=== PATIENT | male | born 1965 | race Caucasian/White ===

== ENCOUNTER 2023-03-17 02:08 | Day surgery (SDC) | payer OTHER, SELFPAY ==
[2023-03-13 16:12] VITALS: BMI 33.3
[2023-03-17 12:09] VITALS: BP 169/104; PULSE 91; RESP 18; TEMP 36.6; O2SAT 99; BMI 32.2
[2023-03-17] MEDS: LACTATED RINGERS 1,000 ML 150 ML IV CONT (12:22)
--- NOTE | 2023-03-17 12:36 | WPDANESEPPF ---
Anes - Initial Pre Proc Eval Procedure: Operation Date: 03/17/23 13:00 Proposed Procedures p Colonoscopy - Jasper Hurd MD Date/Time: 03/17/23 12:36 Surgeon: Jasper Hurd MD Pre Op Diagnosis: hx colon polyps, family hx colon ca Patient Data Age: 57 Gender: M Height: 1.75 m Weight: 99.1 kg Last Vital Signs Temp 97.9 F 03/17/23 12:09 Pulse 91 03/17/23 12:09 Resp 18 03/17/23 12:09 BP 169/104 H 03/17/23 12:09 Pulse Ox 99 03/17/23 12:09 O2 Del Method Room Air 03/17/23 12:09 Allergies Allergy/AdvReac Type Severity Reaction Status Date / Time No Known Allergies Allergy Verified 03/17/23 11:59 Home Medications Medication Instructions Recorded Confirmed Type amlodipine 10 mg tablet 10 mg PO DAILY #90 tabs 10/20/22 03/17/23 Rx tramadol 50 mg tablet 50 mg PO Q6H PRN pain #120 tabs 02/27/23 03/17/23 Rx tadalafil 5 mg tablet 5 mg PO DAILY 03/13/23 03/17/23 History Patient hx anesthesia problems: none Family hx anesthesia problems: none Results Review: All pre-operative results and documents have been reviewed as part of the pre-operative evaluation. [facility] Past Medical History Medical History Erectile dysfunction Hypogonadism Low back pain with left-sided sciatica Primary hypertension Family History Family History Father Family history of malignant neoplasm of gastrointestinal tract Other Malignant neoplasm of prostate Social History Social History (Updated 10/21/22 @ 08:49 by Viviane Harmon PA-C) Smoking status: Never smoker Second hand tobacco smoke exposure: No Alcohol intake: current Drinks per week: 3 Substance use: never Substance use type: does not use Lack of Transportation: No Lack of Food: Never True Current Housing: I Have Housing Concerned About Future Housing: No Difficulty Paying Gas/Electric Bills: No Difficulty Paying for Meds: No Currently Unemployed: No Education: Trade/Vocational Certificate Difficulty w/ Childcare or Family Care: No Living arrangements: with family Spiritual care concerns: No Anes - Eval Final PreProcedure Day of Procedure 03/17/23 12:36 Patient weight: obese Heart: regular rate and rhythm Lungs: clear to auscultation Airway: Mallampati scale class II Neurological: alert and oriented Last oral intake: >/= 8 hours ASA classification: II Emergent: no Anesthetic plan: proceed Anesthesia type and monitoring: general GIVS and standard monitoring Results Review: All pre-operative results and documents have been reviewed as part of the pre-operative evaluation. Informed Consent: The patient's anesthetic plan and its attendant risks and benefits were discussed with the patient/family/POA. Questions were solicited and answers provided to the satisfaction of the patient/family/POA.
--- NOTE | 2023-03-17 12:40 | P.HP_ITS ---
History of Present Illness History of Present Illness Consent: Risks, benefits, and alternatives have been discussed and questions answered. Patient agrees to proceed with procedure. Chief complaint: hx colon polyps, family hx colon ca Narrative: Stanford Lozano is a 57 year old male presents for screening colonoscopy. Patient's current weight appetite and bowel movements are normal. Patient denies abdominal pain. He has had no bleeding. Family history is significant for colon cancer. Patient himself was identified as having colon polyps in 2018. Review of Systems Review of Systems: Review of systems noncontributory. [facility] Past Medical History Medical History Erectile dysfunction Hypogonadism Low back pain with left-sided sciatica Primary hypertension Family History Family History Father Family history of malignant neoplasm of gastrointestinal tract Other Malignant neoplasm of prostate Social History Social History (Updated 10/21/22 @ 08:49 by Viviane Harmon PA-C) Smoking status: Never smoker Second hand tobacco smoke exposure: No Alcohol intake: current Drinks per week: 3 Substance use: never Substance use type: does not use Lack of Transportation: No Lack of Food: Never True Current Housing: I Have Housing Concerned About Future Housing: No Difficulty Paying Gas/Electric Bills: No Difficulty Paying for Meds: No Currently Unemployed: No Education: Trade/Vocational Certificate Difficulty w/ Childcare or Family Care: No Living arrangements: with family Spiritual care concerns: No Meds Home Medications and Allergies Home Medications Medication Instructions Recorded Confirmed Type amlodipine 10 mg tablet 10 mg PO DAILY #90 tabs 10/20/22 03/17/23 Rx tramadol 50 mg tablet 50 mg PO Q6H PRN pain #120 tabs 02/27/23 03/17/23 Rx tadalafil 5 mg tablet 5 mg PO DAILY 03/13/23 03/17/23 History Allergies Allergy/AdvReac Type Severity Reaction Status Date / Time No Known Allergies Allergy Verified 03/17/23 11:59 Vital Signs Vital Signs - 24 hr 03/17/23 12:09 Temperature 97.9 F Pulse Rate 91 Respiratory Rate 18 Blood Pressure 169/104 H Pulse Oximetry 99 Oxygen Delivery Room Air Exam Narrative: Physical exam reveals patient to be alert. Vital signs stable. HEENT exam is unremarkable. Patient is anicteric. Lungs are clear to auscultation and percussion. Heart is without murmur or extra sounds. Abdomen bowel sounds are present soft nontender with no organomegaly. Digital external rectal exam is normal. Assessment and Plan Assessment and plan (1) Colon cancer screening: Code(s): Z12.11 - Encounter for screening for malignant neoplasm of colon Status: Acute Assessment and Plan: Patient has a personal history of colon polyps he also has a family history of colon cancer. For this reason surveillance colonoscopy advised 5 year intervals. Further recommendations may be given after colonoscopy.
[2023-03-17 13:29] VITALS: BP 103/71; PULSE 77; RESP 20; O2SAT 98
[2023-03-17 13:39] VITALS: BP 112/78; PULSE 88; RESP 20; O2SAT 99
[2023-03-17 13:49] VITALS: BP 123/77; PULSE 68; RESP 20; O2SAT 98
== END 2023-03-17 13:55 | disposition home or self-care (01) ==
PROVIDERS: PCP Family Medicine; Visit Provider Internal Medicine Gastroenterology
PROC: 0DJD8ZZ Inspection of Lower Intestinal Tract, Via Natural or Artificial Opening Endoscopic (ICD-10-PCS; CPT 45378; principal; 2023-03-17 13:00)
DX: Z12.11 Encounter for screening for malignant neoplasm of colon (principal); D12.2 Benign neoplasm of ascending colon; K64.8 Other hemorrhoids; I10 Essential (primary) hypertension; Z80.0 Family history of malignant neoplasm of digestive organs
CPT/HCPCS: 45385; 88305; J2704; J7120